=== PATIENT | female | born 1975 | race African-American/Black ===

== ENCOUNTER 2016-06-07 12:31 | Emergency (ER) | payer MEDICAID, OTHER ==
[~2016-06-07] VITALS: Ht 170.2 cm; Wt 91.0 kg
[~2016-06-07 12:31] MED LIST: AMLO10 PO; ASPI81TA82 PO; DICL75 PO; FURO20TA PO; LISI-366 PO; METH4PAK PO; POTA10TA2 PO; PRAV40TA2 PO; ULTR50TA PO
[2016-06-07 12:33] VITALS: BP 160/83; PULSE 72; RESP 15; TEMP 97.7; O2SAT 98
--- NOTE | 2016-06-07 12:51 | PD ---
HPI Chief Complaint: Pain: Acute or Chronic Time Seen by Provider: 12:51 Travel History International Travel<30 days: No Contact w/Intl Traveler<30days: No Traveled to known affect area: No History of Present Illness HPI 41-year-old female coming in complaining of left hip pain which is been progressively worsening over the last several days. She denies any specific injury, but it is worse with movement, ambulation, and laying on it. Pain is localized to the left hip, and extends down the anterior thigh. Pain at worst is an 8/10. Currently is 4/10 when she is not moving or ambulating. She denies fever, chills, or recent illness. She denies any rash. She denies weakness or numbness or tingling. She denies back pain. She is allergic to ibuprofen. PFSH Past Medical History Hx Anticoagulant Therapy: Yes Arthritis: Yes Blood Disorders: No Anxiety: No Cancer: No Cardiovascular Problems: Yes High Cholesterol: Yes Chemotherapy: No Chest Pain: Yes (RECENT) Diabetes: No Diminished Hearing: No Endocrine: No Genitourinary: No Hepatitis: No Hiatal Hernia: No Hypertension: Yes Immune Disorder: No Musculoskeletal: No Neurologic: No Psychiatric: No Reproductive: No Respiratory: No Migraines: Yes Radiation Therapy: No Seizures: Yes (ECLAMPTIC) Thyroid Disease: No PNEUMOCCOCAL Vaccine (Year): 2 ?: Not LMP: 05/23/2016 : 3 Para: 3 Past Surgical History AICD: No Section: Yes (X 1) Gynecologic Surgery: Yes ( 2000) Joint Replacement: No Pacemaker: No Other Surgery: Yes Social History Alcohol Use: Yes (twice a month) Tobacco Use: No Substance Use: No Allergies-Medications (Allergen,Severity, Reaction): Coded Allergies: Ibuprofen (Verified Allergy, Intermediate, SWELLING/RASH, 06/07/16) Reported Meds & Prescriptions Reported Meds & Active Scripts Active Acetaminophen Extra Strength (Acetaminophen) 500 Mg Cap 1,000 Mg PO Q6H PRN Prednisone 20 Mg Tab 20 Mg PO BID Review of Systems Except as stated in HPI: all other systems reviewed are Neg General / Constitutional: No: Fever Eyes: No: Visual changes HENT: No: Headaches Cardiovascular: No: Chest Pain or Discomfort Respiratory: No: Shortness of Breath Gastrointestinal: No: Abdominal Pain Genitourinary: No: Dysuria Musculoskeletal: No: Pain Skin: No Rash Neurologic: No: Weakness Psychiatric: No: Depression Endocrine: No: Polydipsia Hematologic/Lymphatic: No: Easy Bruising Physical Exam Narrative GENERAL: Patient appears in no acute distress. SKIN: Warm and dry. Normal color. Normal turgor. No rash. HEAD: Atraumatic. Normocephalic. EYES: Pupils equal and round. No scleral icterus. No injection or drainage. ENT: No nasal bleeding or discharge. Mucous membranes pink and moist. Pharynx is normal. NECK: Trachea midline. No JVD. Supple and nontender. CARDIOVASCULAR: Regular rate and rhythm. RESPIRATORY: No accessory muscle use. Clear to auscultation. Breath sounds equal bilaterally. GASTROINTESTINAL: Abdomen soft, non-tender, nondistended. Hepatic and splenic margins not palpable. No CVA tenderness. MUSCULOSKELETAL: Extremities without clubbing, cyanosis, or edema. No obvious deformities. No tenderness to the lumbar spine or posterior pelvis. Patient has pain with elevation and rotation of the left hip with pain localized in the hip joint itself. Patient has pain with palpation over the greater trochanteric bursa. NEUROLOGICAL: Awake and alert. No obvious cranial nerve deficits. Motor grossly within normal limits. Five out of 5 muscle strength in the arms and legs. Normal speech. PSYCHIATRIC: Appropriate mood and affect; insight and judgment normal. Data Data Last Documented VS Vital Signs Date Time Temp Pulse Resp B/P Pulse Ox O2 Delivery O2 Flow Rate FiO2 06/07/16 12:33 97.7 72 15 160/83 98 Orders Hip, Uni(Ap&Lat) W Ap Pelvis (06/07/16 13:00) Acetamin-Hydrocod 325-5 Mg (Rumsey 5-325 (06/07/16 13:00) Prednisone (Deltasone) (06/07/16 13:45) [facility] Medical Decision Making Medical Screen Exam Complete: Yes Emergency Medical Condition: Yes Differential Diagnosis Right hip bursitis. Right hip tendinitis. Sciatica. Narrative Course Patient is medically stable at time of exam Patient is given Lortab 5/325 one tab by mouth. X-ray of the left hip and pelvis is ordered. X-ray shows probable calcified tendinosis per radiologist. Patient is given 60 mg prednisone by mouth. Patient will be continued on prednisone 20 mg twice a day for the next 5 days. Patient take acetaminophen 500 mg 2 tabs every 6 hours when necessary pain #60. Patient should follow with her primary care physician to ensure improvement or return to emergency department worsening symptoms as needed. Diagnosis Primary Impression: Bursitis of left hip Additional Impression: Tendonitis of left hip Referrals: Primary Care Physician Patient Instructions: General Instructions, Narcotic given in the ED Additional Instructions: X-ray shows probable calcified tendinosis per radiologist. Patient is given 60 mg prednisone by mouth. Patient will be continued on prednisone 20 mg twice a day for the next 5 days. Patient take acetaminophen 500 mg 2 tabs every 6 hours when necessary pain #60. Patient should follow with her primary care physician to ensure improvement or return to emergency department worsening symptoms as needed. Med/Other Pt SpecificInfo: Prescription(s) given Scripts Acetaminophen (Acetaminophen Extra Strength)500 Mg Cap1,000 Mg PO Q6H PRN (PAIN SCALE 4 TO 10) #60 CAP Ref 1 Prov:Dilshad Smith MD 06/07/16 Prednisone 20 Mg Tab20 Mg PO BID #10 TAB Prov:Dilshad Smith MD 06/07/16 Disposition: 01 DISCHARGE HOME Condition: Stable Abraham Zuniga Jun 07, 2016 12:51
[2016-06-07] MEDS ORDERED: ACETAMINOPHEN/HYDROcodone 325 MG/5 MG TAB PO ONE (13:00)
--- NOTE | 2016-06-07 13:27 | RADRPT ---
EXAM DATE/TIME: 06/07/2016 13:18 [facility] COMPARISON: No previous studies available for comparison. INDICATIONS : Left hip pain for the past four days. No prior trauma. MEDICAL HISTORY : None. SURGICAL HISTORY : None. ENCOUNTER: Initial ACUITY: 4 - 6 days PAIN SCORE: 8/10 LOCATION: Left Hip. FINDINGS: Examination of the left hip was performed with AP Pelvis. Mild degenerative changes of the right hip. Left hip intact. There are some elliott-articular soft tissue calcifications bilaterally. The acetabul um is grossly intact. CONCLUSION: 1. Mild degenerative changes right hip. 2. No acute fracture. 3. Elliott articular calcifications bilaterally could be calcific tendinitis. Emerson Nichole MD on June 07, 2016 at 13:23 Board Certified Radiologist. This report was verified electronically.
[2016-06-07] MEDS ORDERED: predniSONE 20 MG TAB PO ONE (13:45)
[2016-06-07] MEDS ORDERED: PRED20 PO (13:45)
[2016-06-07] MEDS ORDERED: EXTR500C PO (13:45)
== END 2016-06-07 13:57 | disposition home or self-care (01) ==
LOC: NEPB 12:31
DX: M70.72 Other bursitis of hip, left hip (principal); M77.9 Enthesopathy, unspecified; I10 Essential (primary) hypertension; E78.00 Pure hypercholesterolemia, unspecified
CPT/HCPCS: 73502; 99283; J7512

== ENCOUNTER 2017-07-18 23:48 | Emergency (ER) | payer BC, MEDICAID ==
[~2017-07-18] VITALS: Ht 167.6 cm; Wt 100.4 kg
[~2017-07-18 23:48] MED LIST changes: -AMLO10 PO; -ASPI81TA82 PO; -DICL75 PO; +EXTR500C PO; -FURO20TA PO; -LISI-366 PO; -METH4PAK PO; -POTA10TA2 PO; -PRAV40TA2 PO; +PRED20 PO; -ULTR50TA PO
[2017-07-18 23:54] VITALS: BP 173/81; PULSE 71; RESP 18; TEMP 98.7; O2SAT 99
[2017-07-19] MEDS ORDERED: AMLO5TAB2 PO (01:31)
[2017-07-19] MEDS ORDERED: PRAV40TA2 PO (01:31)
[2017-07-19] MEDS ORDERED: LISI10TA3 PO (01:31)
[2017-07-19 01:49] VITALS: BP 148/80; PULSE 85; RESP 18; O2SAT 98
[2017-07-19] MEDS ORDERED: SODIUM CHLOR 0.9% 1000 ML INJ 1,000 ML IV SCH (02:38)
[2017-07-19] MEDS ORDERED: ONDANSETRON HCL 4 MG/2 ML VIAL IVP ONE (02:45)
[2017-07-19] MEDS ORDERED: MORPHINE SULFATE 2 MG/ML SYRINGE IV PUSH ONE (02:45)
[2017-07-19] MEDS ORDERED: SODIUM CHLORIDE 0.9% FLUSH 10 ML FLUSH IV FLUSH PRN (02:45)
[2017-07-19 03:00] VITALS: BP 161/88; PULSE 66; RESP 18; O2SAT 100; O2SAT 99
[2017-07-19 03:01] LABS: BASOPHIL # 0.2 TH/MM3 (0-0.2); BASOPHIL % 1.7 % (0.0-2.0); EOSINOPHIL # 0.3 TH/MM3 (0-0.4); EOSINOPHIL % 2.6 % (0.0-4.0); HEMOGLOBIN 9.3 GM/DL (11.6-15.3); LYMPH % 30.8 % (9.0-44.0); LYMPHOCYTE # 3.2 TH/MM3 (1.0-4.8); MEAN CELL VOLUME 74.4 FL (80.0-100.0); MEAN CORPUSCULAR HEMOGLOBIN 23.1 PG (27.0-34.0); MEAN PLATELET VOLUME 8.5 FL (7.0-11.0); MONO % 7.3 % (0.0-8.0); MONOCYTE # 0.8 TH/MM3 (0-0.9); NEUT % 57.6 % (16.0-70.0); PLATELET COUNT 444 TH/MM3 (150-450); RED BLOOD COUNT 4.03 MIL/MM3 (4.00-5.30); RED CELL DISTRIBUTION WIDTH 19.5 % (11.6-17.2); WHITE BLOOD COUNT 10.5 TH/MM3 (4.0-11.0)
[2017-07-19 03:02] LABS: BILIRUBIN, URINE NEG (NEG); BLOOD, URINE MOD (NEG); GLUCOSE,URINE NEG (NEG); KETONE, URINE NEG (NEG); NITRITE,URINE NEG (NEG); PH, URINE 6.5 (5.0-8.5); URINE COLOR YELLOW (YELLW/STRAW); URINE LEUKOCYTE ESTERASE NEG (NEG)
[2017-07-19 03:10] LABS: CHLORIDE 106 MEQ/L (98-107); SODIUM (NA) 139 MEQ/L (136-145)
[2017-07-19 03:11] LABS: RBC, URINE 0-3 /hpf (0-3); TRICHOMONAS, URINE RARE; WBC, URINE 0-2 /hpf (0-5)
[2017-07-19 03:13] LABS: CALCIUM 8.3 MG/DL (8.5-10.1)
[2017-07-19 03:14] LABS: ALBUMIN 3.3 GM/DL (3.4-5.0); BICARBONATE 25.8 MEQ/L (21.0-32.0); BLOOD UREA NITROGEN 10 MG/DL (7-18); GLUCOSE,RANDOM 86 MG/DL (74-106)
[2017-07-19 03:16] LABS: ALT (GPT) 14 U/L (10-53); AST (GOT) 12 U/L (15-37)
[2017-07-19 03:17] LABS: CREATININE 0.63 MG/DL (0.50-1.00); GLOMERULAR FILTRATION RATE 125 ML/MIN (>89)
[2017-07-19 03:18] LABS: TOTAL BILIRUBIN ADULT 0.1 MG/DL (0.2-1.0); TOTAL PROTEIN 8.3 GM/DL (6.4-8.2)
[2017-07-19 03:19] LABS: ALKALINE PHOSPHATASE 86 U/L (45-117)
[2017-07-19] MEDS ORDERED: IOHEXOL 350 MG/ML 10 ML VIAL (for RAD DIAG) IVCONTRAST ONE (03:30)
--- NOTE | 2017-07-19 04:08 | PD ---
HPI Chief Complaint: Abdominal Pain Time Seen by Provider: 02:38 Travel History International Travel<30 days: No Contact w/Intl Traveler<30days: No Traveled to known affect area: No History of Present Illness HPI 42-year-old female presents to the emergency department for left-sided abdominal pain and flank pain. Prior history of UTI. Patient denies history of kidney stones or renal colic. No history of colitis or diverticulitis. No fever or chills. No nausea or vomiting. Patient rates pain as moderate to severe. Patient is taken no medications for symptom relief. Patient did apply moist heat without relief. Due to persistence of discomfort presents now for further evaluation. Patient is presently menstruating and denies . No bladder or bowel dysfunction. No hematemesis no coffee-ground emesis no melena no hematochezia. Patient denies any lower extremity numbness tingling or weakness. No saddle anesthesia. No injury or fall. PFSH Past Medical History Narrative Medical Arthritis chest pain dyslipidemia hypertension eclampsia with seizure ; nursing notes reviewed Hx Anticoagulant Therapy: Yes Arthritis: Yes Blood Disorders: No Anxiety: No Cancer: No Cardiovascular Problems: Yes High Cholesterol: Yes Chemotherapy: No Chest Pain: Yes (RECENT) Diabetes: No Diminished Hearing: No Endocrine: No Genitourinary: No Hepatitis: No Hiatal Hernia: No Hypertension: Yes Immune Disorder: No Musculoskeletal: No Neurologic: No Psychiatric: No Reproductive: No Respiratory: No Migraines: Yes Radiation Therapy: No Seizures: Yes (ECLAMPTIC) Thyroid Disease: No Tetanus Vaccination: Unknown Influenza Vaccination: Yes PNEUMOCCOCAL Vaccine (Year): 2 ?: Not : 3 Para: 3 Past Surgical History AICD: No Section: Yes (X 1) Gynecologic Surgery: Yes ( 2000) Joint Replacement: No Pacemaker: No Other Surgery: Yes Social History Alcohol Use: Yes (twice a month) Tobacco Use: No Substance Use: No Allergies-Medications (Allergen,Severity, Reaction): Coded Allergies: ibuprofen (Unverified Allergy, Intermediate, SWELLING/RASH, 07/19/17) Reported Meds & Prescriptions Reported Meds & Active Scripts Active Reported Pravastatin 40 Mg Tab 40 Mg PO DAILY Lisinopril 10 Mg Tab 10 Mg PO DAILY Amlodipine (Amlodipine Besylate) 5 Mg Tab 5 Mg PO DAILY Review of Systems Except as stated in HPI: all other systems reviewed are Neg Physical Exam Narrative GENERAL: Well-developed well-nourished male no acute distress no respiratory distress SKIN: Warm and dry. HEAD: Normocephalic. EYES: No scleral icterus. No injection or drainage. NECK: Supple, trachea midline. No JVD or lymphadenopathy. CARDIOVASCULAR: Regular rate and rhythm without murmurs, gallops, or rubs. RESPIRATORY: Breath sounds equal bilaterally. No accessory muscle use. GASTROINTESTINAL: Abdomen soft, non-tender, nondistended. MUSCULOSKELETAL: No cyanosis, or edema. BACK: Nontender without obvious deformity. No CVA tenderness. Data Data Last Documented VS Vital Signs Date Time Temp Pulse Resp B/P (MAP) Pulse Ox O2 Delivery O2 Flow Rate FiO2 07/19/17 03:00 100 07/19/17 03:00 66 18 Room Air 07/18/17 23:54 98.7 Orders Orders Complete Blood Count With Diff (07/19/17 02:38) Comprehensive Metabolic Panel (07/19/17 02:38) Lipase (07/19/17 02:38) Urinalysis - C+S If Indicated (07/19/17 02:38) Ct Abd/Pel W Iv Contrast(Rout) (07/19/17 02:38) Iv Access Insert/Monitor (07/19/17 02:38) Ecg Monitoring (07/19/17 02:38) Oximetry (07/19/17 02:38) Ondansetron Inj (Zofran Inj) (07/19/17 02:45) Sodium Chlor 0.9% 1000 Ml Inj (Ns 1000 M (07/19/17 02:38) Sodium Chloride 0.9% Flush (Ns Flush) (07/19/17 02:45) Ed Urine Pregnancytest Poc (07/19/17 02:38) Morphine Inj (Morphine Inj) (07/19/17 02:45) Iohexol 350 Inj (Omnipaque 350 Inj) (07/19/17 03:30) Labs Laboratory Tests Test 07/19/17 02:40 White Blood Count 10.5 TH/MM3 Red Blood Count 4.03 MIL/MM3 Hemoglobin 9.3 GM/DL Hematocrit 30.0 % Mean Corpuscular Volume 74.4 FL Mean Corpuscular Hemoglobin 23.1 PG Mean Corpuscular Hemoglobin Concent 31.0 % Red Cell Distribution Width 19.5 % Platelet Count 444 TH/MM3 Mean Platelet Volume 8.5 FL Neutrophils (%) (Auto) 57.6 % Lymphocytes (%) (Auto) 30.8 % Monocytes (%) (Auto) 7.3 % Eosinophils (%) (Auto) 2.6 % Basophils (%) (Auto) 1.7 % Neutrophils # (Auto) 6.0 TH/MM3 Lymphocytes # (Auto) 3.2 TH/MM3 Monocytes # (Auto) 0.8 TH/MM3 Eosinophils # (Auto) 0.3 TH/MM3 Basophils # (Auto) 0.2 TH/MM3 CBC Comment DIFF FINAL Differential Comment Urine Color YELLOW Urine Turbidity CLEAR Urine pH 6.5 Urine Specific Sullivan 1.015 Urine Protein NEG mg/dL Urine Glucose (UA) NEG mg/dL Urine Ketones NEG mg/dL Urine Occult Blood MOD Urine Nitrite NEG Urine Bilirubin NEG Urine Urobilinogen 1.0 MG/DL Urine Leukocyte Esterase NEG Urine RBC 0-3 /hpf Urine WBC 0-2 /hpf Urine Squamous Epithelial Cells 6-8 /hpf Urine Bacteria NONE /hpf Urine Trichomonas RARE Microscopic Urinalysis Comment CULT NOT INDICATED Blood Urea Nitrogen 10 MG/DL Creatinine 0.63 MG/DL Random Glucose 86 MG/DL Total Protein 8.3 GM/DL Albumin 3.3 GM/DL Calcium Level 8.3 MG/DL Alkaline Phosphatase 86 U/L Aspartate Amino Transf (AST/SGOT) 12 U/L Alanine Aminotransferase (ALT/SGPT) 14 U/L Total Bilirubin 0.1 MG/DL Sodium Level 139 MEQ/L Potassium Level 3.5 MEQ/L Chloride Level 106 MEQ/L Carbon Dioxide Level 25.8 MEQ/L Anion Gap 7 MEQ/L Estimat Glomerular Filtration Rate 125 ML/MIN Lipase 178 U/L [facility] Medical Decision Making Medical Screen Exam Complete: Yes Emergency Medical Condition: Yes Medical Record Reviewed: Yes Interpretation(s) CT abd/pel: CONCLUSION: 1. Probable sub-centimeters cyst in the left hepatic lobe. 2. Fibroid uterus. 3. Benign osseous changes. 4. Nothing acute to explain current clinical symptoms. Otoniel Siegel MD on July 19, 2017 at 4:46 Board Certified Radiologist. This report was verified electronically. CBC & BMP Diagram 07/19/17 02:40 Total Protein 8.3 H, Albumin 3.3 L, Calcium Level 8.3 L, Alkaline Phosphatase 86 , Aspartate Amino Transf (AST/SGOT) 12 L, Alanine Aminotransferase (ALT/SGPT) 14 , Total Bilirubin 0.1 L Vital Signs Date Time Temp Pulse Resp B/P (MAP) Pulse Ox O2 Delivery O2 Flow Rate FiO2 07/19/17 03:00 100 07/19/17 03:00 66 18 161/88 (112) 99 Room Air 07/19/17 01:49 85 18 148/80 (102) 98 Room Air 07/18/17 23:54 98.7 71 18 173/81 (111) 99 ua: wnl poc hcg: negative Differential Diagnosis Flank pain renal colic UTI pyelonephritis diverticulitis colitis ruptured ovarian cyst ectopic Narrative Course 42-year-old female with flank pain and left lower abdominal pain presently menstruating without fever chills nausea vomiting without medication for symptom relief prior to arrival to the emergency department; IV access obtained specimens collected and sent for resulting patient administered Zofran 4 mg IV and morphine sulfate 2 mg IV as patient reportedly allergic to ibuprofen 4 AM patient's pain is 2-3/10 intensity decreased from 7/[address] imaging study pending lab values are normal range [id number] hCG negative CT abdomen pelvis reveals no acute abnormality although does identify some skeletal changes for chronic SI joint disease. Patient informed of lab results imaging results and stable for outpatient management. Diagnosis Primary Impression: Degenerative arthritis of lumbar spine Qualified Codes: M47.816 - Spondylosis without myelopathy or radiculopathy, lumbar region Referrals: Primary Care Physician call for appointment Patient Instructions: General Instructions, Narcotic given in the ED Additional Instructions: Take medications as prescribed Apply moist heat to low back and low abdomen intermittently Follow-up with your primary care provider Return to the emergency department for any concerns or change in condition Med/Other Pt SpecificInfo: Prescription(s) given Scripts Methocarbamol (Robaxin) 750 Mg Tab 750 MG PO Q6HR for Muscle Spasm, #12 TAB 0 Refills Prov: Lesia Mosquera MD 07/19/17 Methylprednisolone Dosepak (Medrol Dosepak) 4 Mg Dspk 4 MG PO DIRECTED, #1 DSPK 0 Refills Per Pharmacist direction Prov: Lesia Mosquera MD 07/19/17 Disposition: DISCHARGE HOME Condition: Stable Lesia Mosquera MD Jul 19, 2017 04:08
--- NOTE | 2017-07-19 04:53 | RADRPT ---
EXAM DATE/TIME: 07/19/2017 03:26 [facility] COMPARISON: CT ABDOMEN & PELVIS W CONTRAST, October 06, 2013, 10:36. INDICATIONS : Left lower quadrant pain for five days. IV CONTRAST: 100 cc Omnipaque 350 (iohexol) IV ORAL CONTRAST: No oral contrast ingested. RADIATION DOSE: 20.56 CTDIvol (mGy) MEDICAL HISTORY : Hypertension. SURGICAL HISTORY : section. ENCOUNTER: Initial ACUITY: 4 - 6 days PAIN SCALE: 7/10 LOCATION: Left lower quadrant TECHNIQUE: Volumetric scanning of the abdomen and pelvis was performed. Using automated exposure control and ad justment of the mA and/or kV according to patient size, radiation dose was kept as low as reasonably achievable to obtain optimal diagnostic quality images. DICOM format image data is available electro nically for review and comparison. FINDINGS: LOWER LUNGS: The visualized lower lungs are clear. LIVER: Subcentimeter hypodensity in the left hepatic lobe is most characteristic of a benign cyst. There is no dilation of the biliary tree. No calcified gallstones. SPLEEN: Normal size without lesion. PANCREAS: Within normal limits. KIDNEYS: Normal in size and shape. There is no mass, stone or hydronephrosis. ADRENAL GLANDS: Within normal limits. VASCULAR: There is no aortic aneurysm. BOWEL/MESENTERY: The stomach, small bowel, and colon demonstrate no acute abnormality. There is no free intraperitone al air or fluid. ABDOMINAL WALL: Within normal limits. RETROPERITONEUM: There is no lymphadenopathy. BLADDER: No wall thickening or mass. REPRODUCTIVE: Fibroid uterus. INGUINAL: There is no lymphadenopathy or hernia. MUSCULOSKELETAL: Scoliosis of the lumbar spine with associated mild degenerative changes. Degenerative spurring of the SI joints. Benign-appearing osseous cyst in the left sacral ala.. CONCLUSION: 1. Probable sub-centimeters cyst in the left hepatic lobe. 2. Fibroid uterus. 3. Benign osseous changes. 4. Nothing acute to explain current clinical symptoms. Otoniel Siegel MD on July 19, 2017 at 4:46 Board Certified Radiologist. This report was verified electronically.
[2017-07-19] MEDS ORDERED: MEDR4PAK PO (05:06)
[2017-07-19] MEDS ORDERED: ROBA750T PO (05:06)
[2017-07-19 05:18] VITALS: BP 156/81; PULSE 74; RESP 18; O2SAT 99
== END 2017-07-19 05:19 | disposition home or self-care (01) ==
LOC: PHED 23:48
DX: M47.9 Spondylosis, unspecified (principal); R10.32 Left lower quadrant pain; I10 Essential (primary) hypertension; M19.90 Unspecified osteoarthritis, unspecified site; E78.00 Pure hypercholesterolemia, unspecified
CPT/HCPCS: 74177; 80053; 81001; 83690; 84703; 85025; 96361; 96374; 96375; 99285; J2270; J2405; J7030; Q9967